=== PATIENT | male | born 1945 | race Caucasian/White ===

== ENCOUNTER 2016-07-20 18:06 | Observation (INO) | payer MEDICARE, OTHER ==
[~2016-07-20] VITALS: Ht 190.5 cm; Wt 105.0 kg
[2016-07-20 18:10] VITALS: BP 158/82; PULSE 94; RESP 20; TEMP 98.2; O2SAT 96
[2016-07-20 18:46] VITALS: BP_SYST 146; BP_SYST 152; BP_DIAS 84; BP_DIAS 87; PULSE 89; RESP 18; O2SAT 91
[2016-07-20 18:54] LABS: AUTOMATED NEUTROPHIL # 8.5 TH/MM3 (1.8-7.7); BASOPHIL % 0.3 % (0.0-2.0); EOSINOPHIL # 0.3 TH/MM3 (0-0.4); EOSINOPHIL % 2.2 % (0.0-4.0); HEMATOCRIT 44.9 % (39.0-51.0); HEMO FLAGS DIFF FINAL; LYMPH % 19.1 % (9.0-44.0); LYMPHOCYTE # 2.3 TH/MM3 (1.0-4.8); MEAN CELL VOLUME 86.5 FL (80.0-100.0); MEAN CORPUSCULAR HGB CONC 34.7 % (32.0-36.0); MONO % 7.6 % (0.0-8.0); NEUT % 70.8 % (16.0-70.0); PLATELET COUNT 244 TH/MM3 (150-450); RED BLOOD COUNT 5.19 MIL/MM3 (4.50-5.90); RED CELL DISTRIBUTION WIDTH 13.6 % (11.6-17.2)
--- NOTE | 2016-07-20 18:55 | PD ---
HPI Chief Complaint: Chest Pain Time Seen by Provider: 18:55 Travel History International Travel<30 days: No Contact w/Intl Traveler<30days: No Traveled to known affect area: No History of Present Illness HPI 71-year-old male with history of DM and depression presents to the ED for evaluation of chest pain. Onset at rest approximately 5 hours ago. Rated as 10 /10 at onset, 3/10 on presentation. Described as sharp, radiating to both sides of the neck, worsened by deep breathing. Patient endorses shortness of breath and mild nausea. Nausea resolved on presentation. Denies fevers, chills , cough or cold symptoms, diminished appetite, changes in bowel habits, dysuria , back pain. Patient states he saw his PCP approximately 3 months ago, routine visit. He endorses [id number] history of smoking, quit 20 years ago. Endorses family history of heart problems in his father and 2 sisters. He states that he climbs to the top of the [facility] house 3 days ago with no problems. The patient notes that today is the 5 year anniversary of his son' s and it has been emotional day. He acknowledges that his symptoms could be psychiatric in nature. PFSH Past Medical History Diabetes: Yes (metformin) Social History Tobacco Use: Yes (qquit 20 yrs ago. 40 pack year history) Allergies-Medications (Allergen,Severity, Reaction): Coded Allergies: No Known Allergies (Unverified , 07/20/16) Reported Meds & Prescriptions Reported Meds & Active Scripts Active Reported Metformin (Metformin HCl) 500 Mg Tab 500 Mg PO DAILY With a meal Zoloft (Sertraline HCl) 100 Mg Tab 100 Mg PO DAILY Review of Systems Except as stated in HPI: all other systems reviewed are Neg Physical Exam Narrative GENERAL: Well-nourished, well-developed white male in no acute distress. SKIN: Warm and dry. HEAD: Normocephalic. EYES: No scleral icterus. No injection or drainage. NECK: Supple, trachea midline. No JVD or lymphadenopathy. CARDIOVASCULAR: Regular rate and rhythm without murmurs, gallops, or rubs. No carotid bruits. DP and radial pulses 2+ bilaterally. RESPIRATORY: Breath sounds clear and equal bilaterally. No accessory muscle use. GASTROINTESTINAL: Abdomen soft, non-tender, nondistended. Active bowel sounds. MUSCULOSKELETAL: No cyanosis, or edema. BACK: Nontender without obvious deformity. No CVA tenderness. Data Data Last Documented VS Vital Signs Date Time Temp Pulse Resp B/P Pulse Ox O2 Delivery O2 Flow Rate FiO2 07/20/16 18:47 18 95 Nasal Cannula 2 07/20/16 18:46 89 146/87 152/84 07/20/16 18:10 98.2 Orders Electrocardiogram (07/20/16 18:18) Complete Blood Count With Diff (07/20/16 18:18) Basic Metabolic Panel (Bmp) (07/20/16 18:18) Ckmb (Isoenzyme) Profile (07/20/16 18:18) Troponin I (07/20/16 18:18) Chest, Single Ap (07/20/16 18:18) CKMB (07/20/16 18:25) CKMB% (07/20/16 18:25) Labs Laboratory Tests Test 07/20/16 18:25 White Blood Count 12.0 TH/MM3 Red Blood Count 5.19 MIL/MM3 Hemoglobin 15.6 GM/DL Hematocrit 44.9 % Mean Corpuscular Volume 86.5 FL Mean Corpuscular Hemoglobin 30.0 PG Mean Corpuscular Hemoglobin 34.7 % Concent Red Cell Distribution Width 13.6 % Platelet Count 244 TH/MM3 Mean Platelet Volume 7.5 FL Neutrophils (%) (Auto) 70.8 % Lymphocytes (%) (Auto) 19.1 % Monocytes (%) (Auto) 7.6 % Eosinophils (%) (Auto) 2.2 % Basophils (%) (Auto) 0.3 % Neutrophils # (Auto) 8.5 TH/MM3 Lymphocytes # (Auto) 2.3 TH/MM3 Monocytes # (Auto) 0.9 TH/MM3 Eosinophils # (Auto) 0.3 TH/MM3 Basophils # (Auto) 0.0 TH/MM3 CBC Comment DIFF FINAL Differential Comment Sodium Level 137 MEQ/L Potassium Level 4.3 MEQ/L Chloride Level 100 MEQ/L Carbon Dioxide Level 29.6 MEQ/L Anion Gap 7 MEQ/L Blood Urea Nitrogen 16 MG/DL Creatinine 0.91 MG/DL Estimat Glomerular Filtration 82 ML/MIN Rate Random Glucose 127 MG/DL Calcium Level 9.9 MG/DL Total Creatine Kinase 139 U/L Creatine Kinase MB 3.0 NG/ML Troponin I LESS THAN 0.02 NG/ML MDM Medical Decision Making Medical Screen Exam Complete: Yes Emergency Medical Condition: Yes Interpretation(s) Rate 82, sinus rhythm. Occasional PVCs. MT interval 158, QRS 98, QTc 384. Normal axis. No ST elevations or depressions. Reviewed by Dr. Dupree. Differential Diagnosis chest pain versus angina versus ACS versus anxiety versus pneumonia versus UTI versus other Narrative Course 71-year-old male with PMH of DM, depression presents to the ED for evaluation of 5 hour history of chest pain. Onset at rest, rated 10/10 at onset, 3/10 on presentation. Described as sharp, radiating to both sides of her neck, worsened by deep breathing. He endorses shortness of breath and mild nausea initially which is resolved on presentation. He endorses a [id number] history of smoking, quit 20 years ago. Endorses family history of heart problems in his father and sister. Notes that today he is at 5 year anniversary of his son's , has been emotional day, acknowledges that his symptoms could be related to emotional pain. States that he is active, climbing to the top of [employer] 3 days ago with no problems. Physical exam reveals a nontoxic-appearing white male in no acute distress. No appreciable M/R/G. Chest CTAB, abdomen benign. Equal pulses in the distal extremities. No lower extremity edema. CBC: WBC 12.0. CMP: Unremarkable Cardiac enzymes 1: Negative CXR: No acute disease per radiology read. EKG as above. I discussed the results of the workup with the patient. I recommended that he be observed for 23 hours, serial cardiac enzymes and EKGs obtained. The patient and his are amenable to plan of care. Patient will be admitted to the chest pain center. Please see their notes for disposition. Diagnosis Primary Impression: Chest pain Qualified Code: R07.9 - Chest pain, unspecified type Bonnie Murry Jul 20, 2016 18:55
[2016-07-20] MEDS ORDERED: ZOLO100T PO (18:57)
[2016-07-20] MEDS ORDERED: METF500T PO (18:57)
[2016-07-20 19:19] LABS: ANION GAP 7 MEQ/L (5-15); BICARBONATE 29.6 MEQ/L (21.0-32.0); BLOOD UREA NITROGEN 16 MG/DL (7-18); CHLORIDE 100 MEQ/L (98-107); GLOMERULAR FILTRATION RATE 82 ML/MIN (>89); POTASSIUM 4.3 MEQ/L (3.5-5.1); SODIUM (NA) 137 MEQ/L (136-145)
--- NOTE | 2016-07-20 19:21 | RADRPT ---
EXAM DATE/TIME: 07/20/2016 19:01 [facility] COMPARISON: No previous studies available for comparison. INDICATIONS : Chest pain. MEDICAL HISTORY : None. SURGICAL HISTORY : None. ENCOUNTER: Initial ACUITY: 1 day PAIN SCORE: 6/10 LOCATION: Bilateral chest FINDINGS: A single view of the chest demonstrates the lungs to be symmetrically aerated without evidence of mas s, infiltrate or effusion. The cardiomediastinal contours are unremarkable. Osseous structures are intact. CONCLUSION: No acute disease. Edinson Johnson MD on July 20, 2016 at 19:19 Board Certified Radiologist. This report was verified electronically.
[2016-07-20 19:23] LABS: CREATINE KINASE 139 U/L (39-308)
[2016-07-20] MEDS ORDERED: SODIUM CHLORIDE 0.9% FLUSH 5 ML FLUSH IVF PRN (20:15)
[2016-07-20 20:22] VITALS: BP 136/75; PULSE 92; RESP 18; O2SAT 95
--- NOTE | 2016-07-20 20:33 | EKG ---
Date Performed: 07/20/2016 Time Performed: 18:24:44 PTAGE: 71 years EKG: Sinus rhythm WITH OCCASIONAL SUPRAVENTRICULAR PREMATURE COMPLEXES BORDERLINE ECG NO PREVIOUS TRACING DOCTOR: Lane Neumann Interpretating Date/Time 07/20/2016 20:32:05
[2016-07-20] MEDS: SODIUM CHLORIDE 0.9% FLUSH 5 ML FLUSH IVF SCH (21:00)
[2016-07-20 21:22] VITALS: BP 163/86; PULSE 94; RESP 20; TEMP 98; O2SAT 98
[2016-07-20 21:30] VITALS: PULSE 91
[2016-07-20 21:52] LABS: CREATINE KINASE 113 U/L (39-308)
[2016-07-20 22:04] LABS: CKMB 2.5 NG/ML (0.5-3.6)
--- NOTE | 2016-07-20 22:20 | EKG ---
Date Performed: 07/20/2016 Time Performed: 20:45:43 PTAGE: 71 years EKG: Sinus rhythm WITH OCCASIONAL SUPRAVENTRICULAR PREMATURE COMPLEXES PROBABLE INFERIOR MYOCARDIAL INFARCTION ABNORMA L ECG PREVIOUS TRACING : 07/20/2016 18.24 No significant change from previous tracing noted. DOCTOR: Lane Neumann Interpretating Date/Time 07/20/2016 22:19:27
[2016-07-21] VITALS: BP 145/74; PULSE 84; RESP 18; TEMP 97.7; O2SAT 98
[2016-07-21 00:55] VITALS: PULSE 97
[2016-07-21 01:24] LABS: CREATINE KINASE 88 U/L (39-308)
[2016-07-21 04:46] VITALS: BP 135/72; PULSE 86; RESP 18; TEMP 97.8; O2SAT 98
[2016-07-21 07:11] VITALS: O2SAT 97
[2016-07-21] MEDS ORDERED: ACETAMINOPHEN 500 MG CPLT PO PRN (07:30)
[2016-07-21] MEDS ORDERED: NITROGLYCERIN 0.4 MG SL 25 TABS/BTL SL PRN (07:30)
[2016-07-21] MEDS ORDERED: ONDANSETRON HCL 4 MG/2 ML VIAL IV PRN (07:30)
[2016-07-21 08:00] VITALS: BP 115/68; PULSE 80; RESP 16; TEMP 96.4; O2SAT 96
[2016-07-21] MEDS ORDERED: SERTRALINE HCL 100 MG TAB PO SCH (09:00)
[2016-07-21] MEDS ORDERED: ASPIRIN 325 MG TAB PO SCH (09:00)
--- NOTE | 2016-07-21 09:15 | EKG ---
Date Performed: 07/21/2016 Time Performed: 00:36:17 PTAGE: 71 years EKG: Sinus rhythm NORMAL ECG PREVIOUS TRACING : 07/20/2016 20.45 No significant change from previous tracing noted. DOCTOR: Lane Neumann Interpretating Date/Time 07/21/2016 09:14:33
[2016-07-21] MEDS ORDERED: metFORMIN HCL 500 MG TAB PO SCH (10:00)
[2016-07-21] MEDS: SODIUM CHLORIDE 0.9% FLUSH 5 ML FLUSH IVF SCH (10:03)
--- NOTE | 2016-07-21 11:05 | HHI.DCPOC ---
Discharge Care Plan Diagnosis: (1) Atypical chest pain Goals to Promote Your Health * To prevent worsening of your condition and complications * To maintain your health at the optimal level Directions to Meet Your Goals Take your medications as prescribed Follow your dietary instruction Follow activity as directed Keep your appointments as scheduled Take your immunizations and boosters as scheduled If your symptoms worsen call your PCP, if no PCP go to Urgent Care Center or Emergency Room Smoking is Dangerous to Your Health. Avoid second hand smoke Call the 24-hour hour crisis hotline for domestic abuse at [place] Jaime Jul 21, 2016 11:05
--- NOTE | 2016-07-21 11:43 | HHI.HP ---
HPI Primary Care Physician Primary care physician is in [place]. Does not have a primary care physician locally. Chief Complaint Chest pain History of Present Illness 71-year-old patient with known diabetes presents with 6 hours of chest discomfort at rest. Location substernal characterized as a sharp pain with deep breaths. Severity 10 out of 10. His radiation to his neck bilaterally. Duration was approximately 6-7 hours. No associated symptoms. No known precipitating or relieving factors. He has never had chest discomfort and the past. Nor is he ever had formal cardiac testing. No recent illness or cough. He is active walks daily. 3 days ago he walked [employer] with no chest discomfort. Endorses chest discomfort could be related to emotional stress, as yesterday was the anniversary of his son's . Review of Systems General: No fatigue,weakness, fever, chills, recent travel, recent illness, or change in appetite HEENT: No DAMON, no vision changes, no nasal congestion or drainage, no dysphasia CV: As stated above. No current chest discomfort. States chest discomfort went away in the middle of the night. No palpitations or intermittent leg pain. Was "a little dizzy throughout day yesterday." RESP: No SOB, cough, wheeze, or recent URI GI: No nausea, vomiting, bowel changes, diarrhea, constipation, pain, distention , melena, blood in the stool. No change in appetite, no unintentional weight gain or weight loss : No dysuria, urgency, frequency EXT: No lower leg edema, no paraesthesias MS: No discomfort or change in ROM, NEURO: No change in memory, dizziness, difficulty with balance, LOC, motor/ sensory deficits PSYCH: Depression is stable with current medications. No suicidal ideation. Endorses sadness over the of his son 5 years ago. SKIN: No rashes, no concerning lesions Past Family Social History Allergies: Coded Allergies: No Known Allergies (Unverified , 07/20/16) Past Medical History Diabetes, depression Past Surgical History Cholecystectomy Reported Medications Active Reported Metformin (Metformin HCl) 500 Mg Tab 500 Mg PO DAILY With a meal Zoloft (Sertraline HCl) 100 Mg Tab 100 Mg PO DAILY No other [id number] vitamins or supplements. Active Ordered Medications Current Medications Medications (Trade) Dose Ordered Sig/Juanito Route Start Time Stop Time Status Last Admin (Tylenol) 500 mg Q4H PRN PO 07/21/16 07:30 (Zofran Inj) 4 mg Q6H PRN IV 07/21/16 07:30 (Nitrostat Sl) 0.4 mg Q5M PRN SL 07/21/16 07:30 (Aspirin) 325 mg DAILY PO 07/21/16 09:00 07/21/16 10:03 (Zoloft) 100 mg DAILY PO 07/21/16 09:00 07/21/16 10:03 (Glucophage) 500 mg DAILY PO 07/21/16 10:00 07/21/16 10:04 Family History Noncontributory for any early onset cardiovascular disease Social History . Lives in [place]. Stays [facility] 3 months out of the year. Diagnosed with diabetes one year ago. No known hyperlipidemia or hypertension. 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 Past cardiac testing No past cardiac testing, never had cardiac catheterization, or required trackwalker. Physical Exam Vital Signs Vital Signs Date Time Temp Pulse Resp B/P Pulse Ox O2 Delivery O2 Flow Rate FiO2 07/21/16 08:00 96.4 80 16 115/68 96 07/21/16 07:11 97 21 07/21/16 04:46 97.8 86 18 135/72 98 07/21/16 00:55 97 07/21/16 00:00 97.7 84 18 145/74 98 07/20/16 21:30 91 07/20/16 21:22 98.0 94 20 163/86 98 07/20/16 20:22 92 18 136/75 95 Nasal Cannula 2 07/20/16 18:47 18 95 Nasal Cannula 2 07/20/16 18:46 89 18 146/87 91 Room Air 152/84 07/20/16 18:10 98.2 94 20 158/82 96 Room Air Physical Exam GENERAL: Alert WN, WD, NAD, pleasant, male HEAD: NC, AT EYES: Sclera clear, conjunctiva without injection, pupils equal and round ENT: Mucous membranes pink and moist NECK: Supple, no masses, trachea midline CV: RRR, without murmur, rub, gallop, no JVD, S1-S2 no S3-S4. No carotid or femoral bruits RESP: Clear lungs throughout bilateral, no crackles, wheeze, rhonchi, symmetrical chest rise, nonlabored, able to speak in full sentences ABD: Soft, NT, ND, no masses, positive bowel tones BACK: Noscoliosis EXT: Pulses +24, no dependent edema MS: Normal tone 4 extremities, nontender, no obvious deformities, full range of motion NEURO: CN II through CN XII grossly intact, motor strength 5/5, gait WNL PSYCH: A+O 3, pleasant and flat affect, appropriate speech, appropriate mood and affect, insight and judgment SKIN: Normal turgor, normal texture, no lesions, no rashes, brisk cap refill, even hair distribution Laboratory Laboratory Tests Test 07/20/16 07/20/16 07/21/16 18:25 20:46 00:38 White Blood Count 12.0 Red Blood Count 5.19 Hemoglobin 15.6 Hematocrit 44.9 Mean Corpuscular Volume 86.5 Mean Corpuscular Hemoglobin 30.0 Mean Corpuscular Hemoglobin 34.7 Concent Red Cell Distribution Width 13.6 Platelet Count 244 Mean Platelet Volume 7.5 Neutrophils (%) (Auto) 70.8 Lymphocytes (%) (Auto) 19.1 Monocytes (%) (Auto) 7.6 Eosinophils (%) (Auto) 2.2 Basophils (%) (Auto) 0.3 Neutrophils # (Auto) 8.5 Lymphocytes # (Auto) 2.3 Monocytes # (Auto) 0.9 Eosinophils # (Auto) 0.3 Basophils # (Auto) 0.0 CBC Comment DIFF FINAL Differential Comment Sodium Level 137 Potassium Level 4.3 Chloride Level 100 Carbon Dioxide Level 29.6 Anion Gap 7 Blood Urea Nitrogen 16 Creatinine 0.91 Estimat Glomerular Filtration 82 Rate Random Glucose 127 Calcium Level 9.9 Total Creatine Kinase 139 113 88 Creatine Kinase MB 3.0 2.5 Troponin I LESS THAN 0.02 LESS THAN 0.02 LESS THAN 0.02 Result Diagram: 07/20/16182407/20/161824 Imaging Last Impressions Chest X-Ray 07/20/161817 Signed Impressions: Service Date/Time: Wednesday, July 20, 2016 19:01 - CONCLUSION: No acute disease. Edinson Johnson MD Course EKGs 3 EKGs show normal sinus rhythm with no ST or T-segment changes. Assessment and Plan Assessment and Plan #1 chest painadmitted to chest pain center. Ruled out with 3 sets of EKGs, cardiac enzymes, and monitored throughout evening. Will be seen and evaluated by Dr. Micah Becerra. He will complete a exercise stress test as he has never had formal cardiac testing due to risk factors. Patient is agreeable to this plan of care. Naturally if stress test is unremarkable he will be later DC'd home Encouraged to obtain PCP locally and take records of this visit to his PCP in [place]. #2 depressioncontinue Zoloft. Encouraged daily activity for cardiovascular health and mental health Nga Jaime Jul 21, 2016 11:43
--- NOTE | 2016-07-21 11:50 | TR ---
Date Performed: 07/21/2016 Time Performed: 09:42:02 DOCTOR: Micah Becerra DRUG LIST: CLINICAL HISTORY: CHEST PAIN REASON FOR TEST: Chest pain REASON FOR ENDING: OBSERVATION: CONCLUSION: Donaldo protocol completed. Stopped sec to leg fatigue and exceeding target heart rate . Maximum OZ=836 Target HR Achieved=89.0% Maximum MS=225/74 Total Exercise Time=3:01. No reprod chest discomfort. Rare PVC. Normal bp response. No st t segment changes to sugg ischemia. Recovery quick a nd unremarkable. COMMENTS: Conclusion: Normal treadmill exercise. No evidence of ischemia.
[2016-07-21 12:00] VITALS: BP 108/69; PULSE 90; RESP 16; TEMP 96; O2SAT 95
== END 2016-07-21 13:36 | disposition home or self-care (01) ==
LOC: NEPC 18:06 → NEDA 20:08 → NEPFCDU 21:00
DX: R07.89 Other chest pain (principal); F32.9 Major depressive disorder, single episode, unspecified; R94.31 Abnormal electrocardiogram [ECG] [EKG]; E11.9 Type 2 diabetes mellitus without complications; Z87.891 Personal history of nicotine dependence; Z79.4 Long term (current) use of insulin
CPT/HCPCS: 71010; 80048; 82550; 82552; 84484; 85025; 93005; 93017; 99285; G0378